=== PATIENT | male | born 1955 | race Caucasian/White ===

== ENCOUNTER 2023-05-08 06:49 | Emergency (ER) | payer MEDICAID, MEDICARE, OTHER ==
[2023-05-08] MEDS ORDERED: Lidocaine 1% 30 ML SDV INJECT ONE (07:04)
== END 2023-05-08 09:47 ==
LOC: VM.ED 06:49
DX: S01.81XA Laceration without foreign body of other part of head, initial encounter (principal); S01.01XA Laceration without foreign body of scalp, initial encounter; W18.30XA Fall on same level, unspecified, initial encounter; Y93.01 Activity, walking, marching and hiking; Y92.002 Bathroom of unspecified non-institutional (private) residence as the place of occurrence of the external cause
CPT/HCPCS: 12013; 70450; 99285; J3490

== ENCOUNTER 2023-06-15 09:17 | Emergency (ER) | payer OTHER ==
[2023-06-15] MEDS ORDERED: Lidocaine 1% 30 ML SDV INJECT ONE (09:39)
== END 2023-06-15 11:24 ==
LOC: VM.ED 09:17
DX: S01.01XA Laceration without foreign body of scalp, initial encounter (principal); S01.81XA Laceration without foreign body of other part of head, initial encounter; I10 Essential (primary) hypertension; E78.00 Pure hypercholesterolemia, unspecified; E11.40 Type 2 diabetes mellitus with diabetic neuropathy, unspecified; Z79.84 Long term (current) use of oral hypoglycemic drugs; Z79.899 Other long term (current) drug therapy; Z88.8 Allergy status to other drugs, medicaments and biological substances; W19.XXXA Unspecified fall, initial encounter
CPT/HCPCS: 12013; 70450; 99283; 99284; J3490

== ENCOUNTER 2023-07-04 11:22 | Emergency (ER) | payer OTHER ==
[2023-07-04] MEDS: Lidocaine 1% with EPINEPHrine 1:100,000 20 ML MDV INFILT PRN (12:00)
== END 2023-07-04 14:04 ==
LOC: VM.ED 11:22
DX: S01.81XA Laceration without foreign body of other part of head, initial encounter (principal); I10 Essential (primary) hypertension; E78.00 Pure hypercholesterolemia, unspecified; K21.9 Gastro-esophageal reflux disease without esophagitis; E11.40 Type 2 diabetes mellitus with diabetic neuropathy, unspecified; Z79.84 Long term (current) use of oral hypoglycemic drugs; Z79.899 Other long term (current) drug therapy; Z88.8 Allergy status to other drugs, medicaments and biological substances; W18.09XA Striking against other object with subsequent fall, initial encounter
CPT/HCPCS: 12013; 12014; 70450; 99283; J3490

== ENCOUNTER 2024-01-19 21:12 | Emergency (ER) | payer OTHER, MEDICARE, MEDICAID ==
[2024-01-19] MEDS ORDERED: Lidocaine 1% with EPINEPHrine 1:100,000 20 ML MDV INFILT ONE (21:33)
[2024-01-19] MEDS: Bupivacaine 0.5% 30 ML SDV INJECT PRN (21:45)
[2024-01-20] MEDS: Diphtheria,Pertussis(Acell),Tetanus Vaccine 0.5 ML Syringe IM ONE (00:05)
== END 2024-01-20 00:10 ==
LOC: VM.ED 21:12
DX: S01.111A Laceration without foreign body of right eyelid and periocular area, initial encounter (principal); I10 Essential (primary) hypertension; E78.00 Pure hypercholesterolemia, unspecified; E11.40 Type 2 diabetes mellitus with diabetic neuropathy, unspecified; Z79.84 Long term (current) use of oral hypoglycemic drugs; Z79.899 Other long term (current) drug therapy; Z88.8 Allergy status to other drugs, medicaments and biological substances; Z23 Encounter for immunization; W19.XXXA Unspecified fall, initial encounter
CPT/HCPCS: 12011; 70450; 70486; 90471; 90715; 99285; J0665

== ENCOUNTER 2024-04-23 17:47 | Inpatient (IN) | payer OTHER, MEDICARE, MEDICAID ==
[2024-04-23 18:17] LABS: BASOPHILS PERCENT AUTO 0.2 % (0.2-1.2); EOSINOPHILS ABSOLUTE AUTO 0.2 x10^3/uL (0.0-0.5); EOSINOPHILS PERCENT AUTO 4.4 % (0.0-4.0); HEMATOCRIT 45.3 % (40.0-52.0); HEMOGLOBIN 15.7 g/dL (14.0-18.0); LYMPHOCYTES ABSOLUTE AUTO 1.4 x10^3/uL (1.0-4.8); LYMPHOCYTES PERCENT AUTO 34.7 % (25.0-50.0); MEAN CORPUSCULAR HEMOGLOBIN 32.1 pg (26.0-32.0); MEAN CORPUSCULAR HGB CONC 34.7 g/dL (32.0-36.0); MEAN CORPUSCULAR VOLUME 92.6 fL (78.0-93.0); MONOCYTES ABSOLUTE AUTO 0.4 x10^3/uL (0.0-0.8); MONOCYTES PERCENT AUTO 8.6 % (2.0-11.0); NEUTROPHILS ABSOLUTE AUTO 2.1 x10^3/uL (1.8-7.7); NEUTROPHILS PERCENT AUTO 52.1 % (50.0-80.0); PLATELET COUNT,PLT 164 x10^3/uL (130-400); RED BLOOD CELL COUNT 4.89 x10^6/uL (4.5-6.0); WHITE BLOOD CELL COUNT,WBC 4.1 x10^3/uL (4.0-10.0)
[2024-04-23 18:37] LABS: A/G RATIO 1.06; ALANINE AMINOTRANSFERASE,ALT 16 U/L (16-63); ALBUMIN 3.8 g/dL (3.4-5.0); ALKALINE PHOSPHATASE 122 U/L (46-116); ANION GAP 13.8 mmol/L (5-15); ASPARTATE AMNIOTRANSFERASE,AST 13 U/L (15-37); BILIRUBIN TOTAL 0.5 mg/dL (0.2-1.0); BLOOD UREA NITROGEN,BUN 13 mg/dL (7-18); CALCIUM 9.3 mg/dL (8.5-10.1); CARBON DIOXIDE,CO2 31 mmol/L (21-32); CHLORIDE,CL 104 mmol/L (98-107); ESTIMATED GFR 81 mL/min (>=60); GLUCOSE RANDOM 208 mg/dL (70-99); POTASSIUM,K 3.8 mmol/L (3.5-5.1); PROTEIN TOTAL,TP 7.4 g/dL (6.4-8.2); SODIUM,NA 145 mmol/L (136-145)
[2024-04-23] MEDS: Sodium Chloride 0.9% 1,000 ML IV SCH (19:15)
[2024-04-23] MEDS: cefTRIAXone 1 GM Vial IVPUSH ONE (19:15)
[2024-04-23] MEDS ORDERED: Morphine 2 MG/ML SYRINGE IVPUSH PRN (20:41)
[2024-04-23] MEDS ORDERED: Acetaminophen 650 MG Supp RECTAL PRN (20:41)
[2024-04-23] MEDS: Piperacillin/Tazobactam 4.5 GM in Sodium Chloride 0.9% 100 ML IV ONE (21:17)
[2024-04-23 21:19] LABS: CORONAVIRUS COVID-19 NAA NEGATIVE (NEGATIVE); INFLUENZA A NAA NEGATIVE (NEGATIVE)
[2024-04-23 21:20] LABS: INFLUENZA B NAA NEGATIVE (NEGATIVE); RESPIRATORY SYNCYTIAL VIR NAA NEGATIVE (NEGATIVE)
[2024-04-24] MEDS: QUEtiapine 25 MG Tab PO ONE (04:38)
[2024-04-24] MEDS: Piperacillin/Tazobactam 4.5 GM in Sodium Chloride 0.9% 100 ML IV SCH (05:03)
[2024-04-24 07:05] LABS: BASOPHILS PERCENT AUTO 0.1 % (0.2-1.2); EOSINOPHILS PERCENT AUTO 0.4 % (0.0-4.0); HEMATOCRIT 44.9 % (40.0-52.0); HEMOGLOBIN 15.2 g/dL (14.0-18.0); IMMATURE GRAN ABSOLUTE AUTO 0.01 x10^3/uL (0.00-0.07); LYMPHOCYTES ABSOLUTE AUTO 0.7 x10^3/uL (1.0-4.8); MEAN CORPUSCULAR HEMOGLOBIN 31.5 pg (26.0-32.0); MEAN CORPUSCULAR HGB CONC 33.9 g/dL (32.0-36.0); MONOCYTES ABSOLUTE AUTO 0.6 x10^3/uL (0.0-0.8); MONOCYTES PERCENT AUTO 6.7 % (2.0-11.0); NEUTROPHILS ABSOLUTE AUTO 6.9 x10^3/uL (1.8-7.7); NEUTROPHILS PERCENT AUTO 84.7 % (50.0-80.0); PLATELET COUNT,PLT 159 x10^3/uL (130-400); RED BLOOD CELL COUNT 4.83 x10^6/uL (4.5-6.0); WHITE BLOOD CELL COUNT,WBC 8.2 x10^3/uL (4.0-10.0)
[2024-04-24 07:25] LABS: A/G RATIO 1.03; ALBUMIN 3.5 g/dL (3.4-5.0); BILIRUBIN TOTAL 0.8 mg/dL (0.2-1.0); CALCIUM 9.1 mg/dL (8.5-10.1); EST CRCL DRUG DOSING (CG) 65.18 mL/min; POTASSIUM,K 3.9 mmol/L (3.5-5.1); PROTEIN TOTAL,TP 6.9 g/dL (6.4-8.2)
[2024-04-24 07:27] LABS: ANION GAP 12.9 mmol/L (5-15)
[2024-04-25] MEDS ORDERED: Acetaminophen 325 MG Tab PO PRN (07:23)
[2024-04-25 07:37] LABS: BASOPHILS PERCENT AUTO 0.1 % (0.2-1.2); EOSINOPHILS ABSOLUTE AUTO 0.1 x10^3/uL (0.0-0.5); EOSINOPHILS PERCENT AUTO 2.1 % (0.0-4.0); HEMATOCRIT 43.9 % (40.0-52.0); HEMOGLOBIN 14.7 g/dL (14.0-18.0); LYMPHOCYTES ABSOLUTE AUTO 1.1 x10^3/uL (1.0-4.8); LYMPHOCYTES PERCENT AUTO 16.2 % (25.0-50.0); MEAN CORPUSCULAR HEMOGLOBIN 31.1 pg (26.0-32.0); MEAN CORPUSCULAR HGB CONC 33.5 g/dL (32.0-36.0); MONOCYTES ABSOLUTE AUTO 0.5 x10^3/uL (0.0-0.8); MONOCYTES PERCENT AUTO 6.6 % (2.0-11.0); NEUTROPHILS ABSOLUTE AUTO 5.1 x10^3/uL (1.8-7.7); PLATELET COUNT,PLT 133 x10^3/uL (130-400); RED BLOOD CELL COUNT 4.72 x10^6/uL (4.5-6.0); WHITE BLOOD CELL COUNT,WBC 6.8 x10^3/uL (4.0-10.0)
[2024-04-25 07:54] LABS: A/G RATIO 0.92; ALBUMIN 3.3 g/dL (3.4-5.0); BILIRUBIN TOTAL 1.4 mg/dL (0.2-1.0); CALCIUM 8.8 mg/dL (8.5-10.1); EST CRCL DRUG DOSING (CG) 65.18 mL/min; POTASSIUM,K 3.4 mmol/L (3.5-5.1); PROTEIN TOTAL,TP 6.9 g/dL (6.4-8.2)
[2024-04-25 07:59] LABS: ANION GAP 11.4 mmol/L (5-15)
[2024-04-25] MEDS: levETIRAcetam 500 MG Tab PO SCH (08:40)
[2024-04-25] MEDS: Carbidopa/Levodopa 25-100 MG Tab PO SCH (08:41)
[2024-04-25] MEDS: Polyethylene Glycol 3350 Powder 17 GM Packet PO SCH (08:41)
[2024-04-25] MEDS: FLUoxetine 20 MG Cap PO SCH (08:41)
[2024-04-25] MEDS: Empagliflozin 25 MG Tab PO SCH (08:41)
[2024-04-25] MEDS: metFORMIN 500 MG Tab PO SCH (08:41)
[2024-04-25] MEDS: Prazosin 1 MG Cap PO SCH (08:41)
[2024-04-25] MEDS: atorvaSTATin 10 MG Tab PO SCH (20:09)
[2024-04-26 06:59] LABS: BASOPHILS PERCENT AUTO 0.2 % (0.2-1.2); EOSINOPHILS ABSOLUTE AUTO 0.2 x10^3/uL (0.0-0.5); HEMATOCRIT 41.8 % (40.0-52.0); HEMOGLOBIN 14.3 g/dL (14.0-18.0); LYMPHOCYTES ABSOLUTE AUTO 1.2 x10^3/uL (1.0-4.8); LYMPHOCYTES PERCENT AUTO 19.9 % (25.0-50.0); MEAN CORPUSCULAR HEMOGLOBIN 31.4 pg (26.0-32.0); MEAN CORPUSCULAR HGB CONC 34.2 g/dL (32.0-36.0); MEAN CORPUSCULAR VOLUME 91.9 fL (78.0-93.0); MONOCYTES ABSOLUTE AUTO 0.4 x10^3/uL (0.0-0.8); MONOCYTES PERCENT AUTO 6.2 % (2.0-11.0); NEUTROPHILS ABSOLUTE AUTO 4.1 x10^3/uL (1.8-7.7); NEUTROPHILS PERCENT AUTO 69.7 % (50.0-80.0); PLATELET COUNT,PLT 141 x10^3/uL (130-400); RED BLOOD CELL COUNT 4.55 x10^6/uL (4.5-6.0); WHITE BLOOD CELL COUNT,WBC 5.8 x10^3/uL (4.0-10.0)
[2024-04-26 07:26] LABS: A/G RATIO 0.83; BILIRUBIN TOTAL 0.9 mg/dL (0.2-1.0); CALCIUM 8.7 mg/dL (8.5-10.1); CREATININE 0.8 mg/dL (0.70-1.30); EST CRCL DRUG DOSING (CG) 81.48 mL/min; POTASSIUM,K 3.7 mmol/L (3.5-5.1); PROTEIN TOTAL,TP 6.6 g/dL (6.4-8.2)
[2024-04-26 07:27] LABS: ANION GAP 11.7 mmol/L (5-15)
== END 2024-04-26 13:50 | DRG 178 ==
LOC: VM.ED 17:47 → VM.MS 20:14
PROVIDERS: ADMIT Nurse Practitioner Family; ATTEND Nurse Practitioner Family
DX: I63.9 Cerebral infarction, unspecified (principal); T17.908A Unspecified foreign body in respiratory tract, part unspecified causing other injury, initial encounter; J69.0 Pneumonitis due to inhalation of food and vomit; E78.00 Pure hypercholesterolemia, unspecified; E87.20 Acidosis, unspecified; E11.9 Type 2 diabetes mellitus without complications; F02.B3 Dementia in other diseases classified elsewhere, moderate, with mood disturbance; Z88.8 Allergy status to other drugs, medicaments and biological substances; I82.501 Chronic embolism and thrombosis of unspecified deep veins of right lower extremity; R29.810 Facial weakness; I10 Essential (primary) hypertension; Z66 Do not resuscitate; E11.42 Type 2 diabetes mellitus with diabetic polyneuropathy; E11.3293 Type 2 diabetes mellitus with mild nonproliferative diabetic retinopathy without macular edema, bilateral; K21.9 Gastro-esophageal reflux disease without esophagitis; G89.29 Other chronic pain; M54.50 Low back pain, unspecified; E78.5 Hyperlipidemia, unspecified; M19.90 Unspecified osteoarthritis, unspecified site; G30.1 Alzheimer's disease with late onset; H91.93 Unspecified hearing loss, bilateral; G40.909 Epilepsy, unspecified, not intractable, without status epilepticus; F43.20 Adjustment disorder, unspecified; R09.02 Hypoxemia; Z79.01 Long term (current) use of anticoagulants; Z79.84 Long term (current) use of oral hypoglycemic drugs; Z79.899 Other long term (current) drug therapy
CPT/HCPCS: 0241U; 36415; 70450; 70551; 71045; 80053; 82947; 83605; 84484; 85025; 87040; 87070; 92610-GN; 93005; 93010; 97110-GP; 97116-GP; 97162-GP; 97165-GO; 97530-GP; 97535-GO; 99223; 99232; 99233; 99238; 99284; 99285; A9270-GY; J0696; J2543; J3490; J7030

== ENCOUNTER 2024-12-27 15:17 | Inpatient (IN) | payer OTHER, MEDICARE, MEDICAID ==
[2024-12-27] MEDS ORDERED: Sodium Chloride 0.9% 10 ML Syringe FLUSH PRN (15:23)
[2024-12-27 15:33] LABS: BASOPHILS PERCENT AUTO 0.2 % (0.2-1.2); EOSINOPHILS ABSOLUTE AUTO 0.3 x10^3/uL (0.0-0.5); EOSINOPHILS PERCENT AUTO 3.1 % (0.0-4.0); HEMATOCRIT 48.5 % (40.0-52.0); HEMOGLOBIN 16.2 g/dL (14.0-18.0); IMMATURE GRAN ABSOLUTE AUTO 0.03 x10^3/uL (0.00-0.07); LYMPHOCYTES ABSOLUTE AUTO 3.5 x10^3/uL (1.0-4.8); LYMPHOCYTES PERCENT AUTO 43.4 % (25.0-50.0); MEAN CORPUSCULAR HEMOGLOBIN 31.2 pg (26.0-32.0); MEAN CORPUSCULAR HGB CONC 33.4 g/dL (32.0-36.0); MEAN CORPUSCULAR VOLUME 93.4 fL (78.0-93.0); MONOCYTES ABSOLUTE AUTO 0.7 x10^3/uL (0.0-0.8); MONOCYTES PERCENT AUTO 8.1 % (2.0-11.0); NEUTROPHILS ABSOLUTE AUTO 3.6 x10^3/uL (1.8-7.7); NEUTROPHILS PERCENT AUTO 44.8 % (50.0-80.0); PLATELET COUNT,PLT 183 x10^3/uL (130-400); RED BLOOD CELL COUNT 5.19 x10^6/uL (4.5-6.0)
[2024-12-27] MEDS ORDERED: cefTRIAXone 1 GM Vial IVPUSH SCH (16:00)
[2024-12-27 16:05] LABS: ALANINE AMINOTRANSFERASE,ALT 30 U/L (16-63); ALBUMIN 3.5 g/dL (3.4-5.0); ALKALINE PHOSPHATASE 157 U/L (46-116); ASPARTATE AMNIOTRANSFERASE,AST 69 U/L (15-37); BILIRUBIN TOTAL 0.5 mg/dL (0.2-1.0); BLOOD UREA NITROGEN,BUN 16 mg/dL (7-18); CALCIUM 8.8 mg/dL (8.5-10.1); CARBON DIOXIDE,CO2 24 mmol/L (21-32); CHLORIDE,CL 103 mmol/L (98-107); CREATININE 1.4 mg/dL (0.70-1.30); GLUCOSE RANDOM 227 mg/dL (70-99); POTASSIUM,K 3.6 mmol/L (3.5-5.1); PROTEIN TOTAL,TP 7.4 g/dL (6.4-8.2); SODIUM,NA 145 mmol/L (136-145)
[2024-12-27 16:06] LABS: ANION GAP 21.6 mmol/L (5-15); ESTIMATED GFR 54 mL/min (>=60)
[2024-12-27] MEDS: cefTRIAXone 1 GM Vial IVPUSH ONE (16:17)
[2024-12-27] MEDS: Sodium Chloride 0.9% 1,000 ML IV ONE (16:18)
[2024-12-27] MEDS ORDERED: Ondansetron 4 MG Tab.DIS PO PRN (16:55)
[2024-12-27] MEDS ORDERED: Acetaminophen 325 MG Tab PO PRN (16:55)
[2024-12-27] MEDS ORDERED: Albuterol 0.083% 2.5 MG/3 ML Neb Soln NEB PRN (16:55)
[2024-12-27] MEDS ORDERED: Ondansetron 4 MG/2 ML SDV IV PRN (16:55)
[2024-12-27] MEDS ORDERED: Morphine 2 MG/ML SYRINGE IVPUSH PRN (16:55)
[2024-12-27] MEDS ORDERED: Acetaminophen/oxyCODONE 325-5 MG Tab PO PRN (16:55)
[2024-12-27] MEDS ORDERED: Glucagon,Human Recombinant 1 MG Vial IM PRN (17:03)
[2024-12-27] MEDS ORDERED: 50% Dextrose in Water 50 ML Syringe IVPUSH PRN (17:03)
[2024-12-27] MEDS: Insulin Lispro 100 Units/ML 3 ML Vial SUBCUT SCH (18:12)
[2024-12-27 18:13] LABS: HCO3 VENOUS,POC 21 mmol/L (22-29); O2 SATURATION VENOUS,POC 100 %; PCO2 VENOUS,POC 30 mmHg (41-51); PH VENOUS,POC 7.46 pH (7.32-7.43); PO2 VENOUS,POC 184 mmHg
[2024-12-27] MEDS: Ampicillin/Sulbactam Na 3 GM in Sodium Chloride 0.9% 100 ML IV SCH (18:21)
[2024-12-27] MEDS: Sodium Chloride 0.9% 1,000 ML IV SCH (18:39)
[2024-12-27] MEDS: Furosemide 40 MG/4 ML VIAL IV ONE (20:06)
[2024-12-27] MEDS: Carbidopa/Levodopa 25-100 MG Tab PO SCH (20:25)
[2024-12-27] MEDS: atorvaSTATin 10 MG Tab PO SCH (20:25)
[2024-12-27] MEDS: Prazosin 1 MG Cap PO SCH (20:26)
[2024-12-27] MEDS: levETIRAcetam 500 MG Tab PO SCH (20:29)
[2024-12-28 08:21] LABS: LACTIC ACID 1.3 mmol/L (0.4-2.0)
[2024-12-28] MEDS: FLUoxetine 20 MG Cap PO SCH (09:15)
[2024-12-28] MEDS: ARIPiprazole 5 MG Tab PO SCH (09:15)
[2024-12-28] MEDS: Empagliflozin 25 MG Tab PO SCH (09:15)
[2024-12-28] MEDS: Rivaroxaban 10 MG Tab PO SCH (10:08)
== END 2024-12-29 11:00 | disposition home or self-care (01) | DRG 177 ==
LOC: VM.ED 15:17 → VM.MS 16:18
PROVIDERS: ADMIT Family Medicine; ATTEND Family Medicine
DX: R41.82 Altered mental status, unspecified (principal); R09.89 Other specified symptoms and signs involving the circulatory and respiratory systems; J69.0 Pneumonitis due to inhalation of food and vomit; J96.01 Acute respiratory failure with hypoxia; E11.9 Type 2 diabetes mellitus without complications; I82.501 Chronic embolism and thrombosis of unspecified deep veins of right lower extremity; F02.818 Dementia in other diseases classified elsewhere, unspecified severity, with other behavioral disturbance; F02.84 Dementia in other diseases classified elsewhere, unspecified severity, with anxiety; F02.A4 Dementia in other diseases classified elsewhere, mild, with anxiety; Z66 Do not resuscitate; G30.9 Alzheimer's disease, unspecified; H91.90 Unspecified hearing loss, unspecified ear; E78.00 Pure hypercholesterolemia, unspecified; I10 Essential (primary) hypertension; G47.30 Sleep apnea, unspecified; K21.9 Gastro-esophageal reflux disease without esophagitis; G40.909 Epilepsy, unspecified, not intractable, without status epilepticus; M19.90 Unspecified osteoarthritis, unspecified site; E11.42 Type 2 diabetes mellitus with diabetic polyneuropathy; E11.3393 Type 2 diabetes mellitus with moderate nonproliferative diabetic retinopathy without macular edema, bilateral; G47.00 Insomnia, unspecified; M54.9 Dorsalgia, unspecified; G89.29 Other chronic pain; Z86.16 Personal history of COVID-19; Z79.84 Long term (current) use of oral hypoglycemic drugs; Z88.8 Allergy status to other drugs, medicaments and biological substances; Z79.899 Other long term (current) drug therapy; Z79.4 Long term (current) use of insulin; Z79.01 Long term (current) use of anticoagulants; Z79.82 Long term (current) use of aspirin; Z86.73 Personal history of transient ischemic attack (TIA), and cerebral infarction without residual deficits
CPT/HCPCS: 36415; 70450; 71045; 80053; 83605; 83880; 84484; 85025; 87040 ×2; 87070; 93005; 93010; 96374; 99284; 99285; J0696; 82803; 82947; 92610-GN; 94760; 99223; 99233; 99239; A9270-GY; J0295; J1815-GY; J1938; J7030